=== PATIENT | male | born 1985 | race Caucasian/White ===

== ENCOUNTER → 2018-04-07 | Outpatient (CLI) | payer OTHER ==
[~2018-04-07] MED LIST: IBU800 PO; PER PO
--- NOTE | 2018-04-07 08:53 | RADIOLOGY IMAGING REPORT ---
FACILITY: [facility] PATIENT NAME: Benjy Early : 1985 MR: [id number] V: [id number] EXAM DATE: ORDERING PHYSICIAN: HANSA BUSH TECHNOLOGIST: Location: [facility] [place] Patient: Benjy Early : 1985 Visit/Account:[id number] Date of Sevice: 04/07/2018 EXAMINATION: MRI lumbar spine without IV contrast HISTORY: Lower back pain, lumbago with sciatica, left side. COMPARISON: None. TECHNIQUE: Multi-planar, multi-sequence lumbar spine MRI was performed without intravenous contrast administration. FINDINGS: Alignment: Straightening of the lumbar spine without focal listhesis. Vertebral marrow signal: Negative. Distal thoracic cord: Negative. Conus: negative, terminates at T12-L1. Cauda equina: Negative. Paravertebral soft tissues: Negative. Visualized abdominal and pelvic structures: Negative. Disc spaces: Lower thoracic spine: Normal. L1-2: Normal. L2-3: Normal. L3-4: Normal. L4-5: Broad-based disc protrusion with annular fissure eccentric to the left. Mild left lateral rece ss stenosis and moderate left foraminal stenosis without significant central canal stenosis. The dis c closely approximates and may cause mild mass effect on the foraminal left L4 nerve root. L5-S1: Normal. IMPRESSION: Broad-based disc protrusion with annular fissure eccentric to the left L4-5 causing mild left lateral recess stenosis and moderate left foraminal stenosis. Possible mild mass effect on the foraminal le ft L4 nerve root. Report Dictated By: Martha Cha MD at 04/07/2018 8:43 AM Report E-Signed By: Martha Cha MD at 04/07/2018 8:49 AM WSN:[id number]
== END ==
LOC: MRI 02:18
PROVIDERS: ATTEND Family Medicine
DX: M48.061 Spinal stenosis, lumbar region without neurogenic claudication (principal)
CPT/HCPCS: 72148